=== PATIENT | male | born 1960 | race Caucasian/White ===

== ENCOUNTER 2017-07-19 11:05 | Day surgery (SDC) | payer BC ==
[~2017-07-19] VITALS: Ht 185.4 cm; Wt 84.1 kg
[2017-07-19] MEDS ORDERED: SODIUM CHLORIDE 0.9% 1,000 ML IV SCH (12:29)
[2017-07-19] MEDS ORDERED: ASPIRIN 325 MG TABLET EC PO ONE (12:30)
[2017-07-19 12:34] VITALS: BP 113/87
[2017-07-19] MEDS ORDERED: ATOR40TA PO (12:41)
[2017-07-19] MEDS ORDERED: ASPI-496 PO (12:41)
[2017-07-19] MEDS ORDERED: ASPIRIN 325 MG TABLET EC ONE (12:45)
[2017-07-19] MEDS ORDERED: PLEASE ENTER ALLERGIES MC SCH ×2 (13:30)
[2017-07-19] MEDS ORDERED: BIVALIRUDIN 250 MG ONE (13:44)
[2017-07-19] MEDS ORDERED: FENTANYL PF 100 MCG/2ML ONE ×2 (13:44→13:54)
[2017-07-19] MEDS ORDERED: TICAGRELOR 90 MG TABLET ONE (13:44)
[2017-07-19] MEDS ORDERED: VERAPAMIL 2.5 MG/ML, 2ML ONE (13:44)
[2017-07-19] MEDS ORDERED: MIDAZOLAM 1 MG/ML, 5ML ONE (13:44)
[2017-07-19] MEDS ORDERED: LIDOCAINE 2%, 20ML ONE (13:45)
[2017-07-19] MEDS ORDERED: HEPARIN 1,000 UNITS/ML, 10ML ONE (13:45)
[2017-07-19] MEDS ORDERED: ACETAMINOPHEN 325 MG TABLET PO PRN (14:30)
[2017-07-19] MEDS ORDERED: ATORVASTATIN 40 MG TABLET PO SCH (21:00)
[2017-07-20] MEDS ORDERED: ASPIRIN 81 MG TABLET EC PO SCH (09:00)
== END 2017-07-19 17:12 ==
LOC: CACL 11:05
PROVIDERS: ATTEND Internal Medicine Cardiovascular Disease
DX: I25.10 Atherosclerotic heart disease of native coronary artery without angina pectoris (principal); Z79.82 Long term (current) use of aspirin; E78.2 Mixed hyperlipidemia
CPT/HCPCS: 93458; 93571; 93572; 99156; 99157; C1769; C1887; C1894; J1644; J2250; J3010; J3490; Q9967; J0583

== ENCOUNTER → 2017-07-29 | Outpatient (CLI) | payer BC ==
[~2017-07-29] MED LIST: ASPI-496 PO; ATOR40TA PO
== END | disposition home or self-care (01) ==
LOC: CFH 08:33
PROVIDERS: ATTEND Family Medicine
DX: E55.9 Vitamin D deficiency, unspecified (principal); Z13.820 Encounter for screening for osteoporosis; M85.89 Other specified disorders of bone density and structure, multiple sites
CPT/HCPCS: 77080

== ENCOUNTER → 2017-10-14 | Outpatient (CLI) | payer BC ==
[~2017-10-14] MED LIST changes: +OMNIPAQUE 350 MG/ML, 100ML BOTTLE ONE
== END | disposition home or self-care (01) ==
LOC: CFH 08:35
PROVIDERS: ATTEND Internal Medicine Cardiovascular Disease
DX: I77.810 Thoracic aortic ectasia (principal); I25.10 Atherosclerotic heart disease of native coronary artery without angina pectoris
CPT/HCPCS: 71275; Q9967

== ENCOUNTER → 2020-02-08 | Outpatient (CLI) | payer BC ==
[~2020-02-08] MED LIST changes: -OMNIPAQUE 350 MG/ML, 100ML BOTTLE ONE
== END | disposition home or self-care (01) ==
LOC: CFH 08:40
PROVIDERS: ATTEND Family Medicine
DX: S22.080G Wedge compression fracture of T11-T12 vertebra, subsequent encounter for fracture with delayed healing (principal); M85.88 Other specified disorders of bone density and structure, other site; X58.XXXD Exposure to other specified factors, subsequent encounter
CPT/HCPCS: 77080